=== PATIENT | male | born 1965 | race Hispanic/Latino ===

== ENCOUNTER 2016-12-20 09:53 | Inpatient (IN) | payer OTHER ==
[2016-12-20 09:53] VITALS: PULSE 130
--- NOTE | 2016-12-20 10:13 | ED PDOC ---
Arrival/HPI - General Chief Complaint: Palpitations Time Seen by Provider: 12/20/16 10:03 Historian: Patient - Critical Care Critical Care Minutes: 30 minutes - History of Present Illness Narrative History of Present Illness (Text): 12/20/16 09:57 A 51 year old male, whose past medical history includes hypertension, hyperlipidemia, and diabetes, presents to the emergency department sent by his Orthophotography Technician Dr. Chaudhry for rapid atrial fibrillation. Patient states he was diagnosed with Atrial Fibrillation 5 days ago by PMD but today he was told his HR is fast. Patient was given a dose of digoxin by hair mixer with no improvement. Patient denies of any shortness of breath, palpitations, chest pain , dizziness, or any other complaints. PMD: Dr. Quiroz Orthophotography Technician: Dr. Chaudhry Time/Duration: < week (5 days) Symptom Onset: Sudden Symptom Course: Unchanged Past Medical History - Provider Review Nursing Documentation Reviewed: Yes - Psychiatric Hx Substance Use: No Family/Social History - Physician Review Nursing Documentation Reviewed: Yes Family/Social History: No Known Family HX Smoking Status: Never Smoked Hx Alcohol Use: Yes Frequency of alcohol use: Socially Hx Substance Use: No Allergies/Home Meds Allergies/Adverse Reactions: Allergies No Known Allergies Allergy (Verified 12/20/16 10:12) Home Medications: Home Meds Medication Instructions Recorded Confirmed Atorvastatin [Lipitor] 10 mg PO DAILY 07/13/14 12/20/16 Levothyroxine Sodium 50 mcg PO DAILY 07/13/14 12/20/16 [Levothyroxine] Pantoprazole Sodium [Protonix] 40 mg PO DAILY 07/13/14 12/20/16 Fenofibrate Nanocrystallized 200 mg PO DAILY 12/20/16 12/20/16 [Fenofibrate] Icosapent Ethyl [Vascepa] 2 gm PO BID 12/20/16 12/20/16 Losartan [Cozaar] 100 mg PO DAILY 12/20/16 12/20/16 Metoprolol Succinate [Toprol XL] 100 mg PO BID 12/20/16 12/20/16 Review of Systems - Physician Review All systems were reviewed & negative as marked: Yes - Review of Systems Respiratory: absent: SOB Cardiovascular: Other (atrial fibrillation). absent: Chest Pain, Palpitations Neurological: absent: Dizziness Physical Exam Vital Signs Reviewed: Yes Vital Signs Temp Pulse Resp BP Pulse Ox 12/20/16 12:38 98.6 F 93 H 17 132/91 H 96 12/20/16 10:36 90 144/83 12/20/16 10:17 145 H 159/119 H 12/20/16 10:06 98.3 F 145 H 20 159/119 H 99 12/20/16 10:02 98.3 F 145 H 20 159/119 H 99 Temperature: Afebrile Blood Pressure: Hypertensive Pulse: Irregular Respiratory Rate: Normal Appearance: Positive for: Well-Appearing Pain Distress: None Mental Status: Positive for: Alert and Oriented X 3 - Systems Exam Head: Present: Atraumatic, Normocephalic Pupils: Present: PERRL Extroacular Muscles: Present: EOMI Conjunctiva: Present: Normal Mouth: Present: Moist Mucous Membranes Neck: Present: Normal Range of Motion Respiratory/Chest: Present: Clear to Auscultation, Good Air Exchange. No: Respiratory Distress, Accessory Muscle Use Cardiovascular: Present: Irregular Rhythm Abdomen: Present: Normal Bowel Sounds. No: Tenderness, Distention, Peritoneal Signs Back: Present: Normal Inspection Upper Extremity: Present: Normal Inspection. No: Cyanosis, Edema Lower Extremity: Present: Normal Inspection. No: Edema Neurological: Present: GCS=15, CN II-XII Intact, Speech Normal Skin: Present: Warm, Dry, Normal Color. No: Rashes Psychiatric: Present: Alert, Oriented x 3, Normal Insight, Normal Concentration Medical Decision Making ED Course and Treatment: 12/20/16 10:02 Impression: 51 year old male with atrial fibrillation. Differential Diagnosis included but are not limited to: Atrial Fibrillation Plan: -- EKG -- Chest X-ray -- Labs -- Cardizem -- Reassess and disposition Progress Notes: EKG: Ordered, reviewed, and independently interpreted the EKG. Rate : 134 BPM Rhythm : Atrial Fibrillation Interpretation : No ST-segment elevations or depressions, no T-wave inversions, normal intervals. Comparison : No previous EKG for comparison. 12/20/16 10:15 Patient was administered Cardizem 15 mg and heart rate changed to A-Fib at 80- 90 BPM. Ordered Cardizem PO. Patient continues to be asymptomatic. 12/20/2016 10:26 EKG: Ordered, reviewed, and independently interpreted the EKG. Rate : 86 BPM Rhythm : Atrial Fibrillation Interpretation : No ST-segment elevations or depressions, no T-wave inversions, normal intervals. Comparison : No previous EKG for comparison. 12/20/2016 10:40 Chest X-ray IMPRESSION: Mild cardiomegaly. Pulmonary venous appearance probably top-normal. Mammillated/asymmetrically elevated right hemidiaphragm. Dictator: Perla Jones MD Actual weight obtained and patient treated with lovenox. Case was discussed with Dr. Raza who is covering for Dr. Quiroz. He will place on his service. Consult placed for Dr. Chaudhry. - Critical Care Critical Care Minutes: 30 minutes - Lab Interpretations Lab Results: 12/20/16 10:30 12/20/16 10:30 Lab Results 12/20/16 10:30: PT 11.7, INR 1.08, APTT 26.9 12/20/16 10:30: Sodium 145, Potassium 4.7, Chloride 107, Carbon Dioxide 24, Anion Gap 19, BUN 23 H, Creatinine 1.0, Est GFR ( Amer) > 60, Est GFR ( Non-Af Amer) > 60, Random Glucose 107, Calcium 10.0, Magnesium 1.1 L, Total Bilirubin 0.7, AST 31, ALT 37, Alkaline Phosphatase 50, Lactate Dehydrogenase 401, Total Creatine Kinase 124, Troponin I < 0.01, Total Protein 7.6, Albumin 4.5, Globulin 3.1, Albumin/Globulin Ratio 1.5 12/20/16 10:30: WBC 7.6, RBC 4.33, Hgb 13.8 L, Hct 40.1 L, MCV 92.6, MCH 31.9, MCHC 34.4, RDW 13.0, Plt Count 236, MPV 11.0, Gran % 71.9 H, Lymph % (Auto) 18.8 L, [place] % (Auto) 7.0 H, Eos % (Auto) 1.8, Baso % (Auto) 0.5, Gran # 5.45, Lymph # 1.4, [place] # 0.5, Eos # 0.1, Baso # 0.04 12/20/16 09:40: TSH 3rd Generation 2.40 I have reviewed the lab results: Yes Interpretation: All labs normal - RAD Interpretation Radiology Orders: 12/20/16 10:05 CHEST PORTABLE [RAD] Stat Filling Operator: Radiologist - Medication Orders Current Medication Orders: Alprazolam (Xanax) 0.25 mg PO Q8 PRN; Protocol PRN Reason: Anxiety Stop: 12/27/16 14:01 Atorvastatin Calcium (Lipitor) 10 mg PO DAILY [facility] Last Admin: 12/20/16 11:31 Dose: Enoxaparin Sodium (Lovenox) 110 mg SC Q12H [facility] PRN Reason: Protocol Last Admin: 12/20/16 11:30 Dose: Fenofibrate (Tricor) 145 mg PO DAILY [facility] Levothyroxine Sodium (Synthroid) 50 mcg PO DAILY [facility] Losartan Potassium (Cozaar) 100 mg PO DAILY [facility] Last Admin: 12/20/16 11:31 Dose: Metoprolol Succinate (Toprol Xl) 100 mg PO BID [facility] Last Admin: 12/20/16 17:44 Dose: 100 mg MAR Pulse and Blood Pressure Document 12/20/16 17:44 JANINE (Rec: 12/20/16 17:45 JANINE [id number]) Pulse Pulse Rate (60-90) 97 Blood Pressure Blood Pressure (100/60-150/90) 128/86 Pantoprazole Sodium (Protonix Ec Tab) 40 mg PO DAILY [facility] Last Admin: 12/20/16 11:35 Dose: 40 mg Discontinued Medications Diltiazem HCl (Cardizem) 20 mg IVP STAT STA Stop: 12/20/16 10:08 Last Admin: 12/20/16 10:17 Dose: 15 mg IVP Administration Document 12/20/16 10:17 IT (Rec: 12/20/16 10:17 IT [id number]) Charges for Administration # of IVP Administrations 1 MAR Pulse and Blood Pressure Document 12/20/16 10:17 IT (Rec: 12/20/16 10:17 IT [id number]) Pulse Pulse Rate (60-90) 145 Blood Pressure Blood Pressure (100/60-150/90) 159/119 Diltiazem HCl (Cardizem) 60 mg PO STAT STA Stop: 12/20/16 10:15 Last Admin: 12/20/16 10:36 Dose: 60 mg MAR Pulse and Blood Pressure Document 12/20/16 10:36 IT (Rec: 12/20/16 10:36 IT [id number]) Pulse Pulse Rate (60-90) 90 Blood Pressure Blood Pressure (100/60-150/90) 144/83 Enoxaparin Sodium (Lovenox) 100 mg SC STAT STA PRN Reason: Protocol Stop: 12/20/16 10:42 Last Admin: 12/20/16 10:49 Dose: 100 mg Subcutaneous Administrations Document 12/20/16 10:49 IT (Rec: 12/20/16 10:52 IT [id number]) Injection Site MAR Injection Site Left Abdomen Charges for Administration # of Subcutaneous Administrations 1 Magnesium Oxide (Mag-Ox) 400 mg PO STAT STA Stop: 12/20/16 11:10 Last Admin: 12/20/16 11:35 Dose: 400 mg - Scribe Statement The provider has reviewed the documentation as recorded by the Britany Nettles Provider Scribe Attestation: All medical record entries made by the Britany were at my direction and personally dictated by me. I have reviewed the chart and agree that the record accurately reflects my personal performance of the history, physical exam, medical decision making, and the department course for this patient. I have also personally directed, reviewed, and agree with the discharge instructions and disposition. Disposition/Present on Arrival - Present on Arrival Any Indicators Present on Arrival: No History of DVT/PE: No History of Uncontrolled Diabetes: No Urinary Catheter: No History of Decub. Ulcer: No History Surgical Site Infection Following: None - Disposition Have Diagnosis and Disposition been Completed?: Yes Diagnosis: Rapid atrial fibrillation Disposition: HOSPITALIZED Disposition Time: 11:09 Patient Plan: Admission Condition: CRITICAL
[2016-12-20 10:39] LABS: BASO # 0.04 K/mm3 (0.0-2.0); BASO % 0.5 % (0.0-3.0); EOS # 0.1 (0.0-0.7); EOS % 1.8 % (1.5-5.0); GRAN # 5.45 (1.4-6.5); GRAN % 71.9 % (50.0-68.0); HEMATOCRIT 40.1 % (42.0-52.0); LYMPH # 1.4 (1.2-3.4); LYMPH % 18.8 % (22.0-35.0); MEAN CELL VOLUME 92.6 fl (80.0-105.0); MEAN CORPUSCULAR HEMOGLOBIN 31.9 pg (25.0-35.0); MEAN CORPUSCULAR HGB CONC 34.4 g/dl (31.0-37.0); MONO # 0.5 (0.1-0.6); WHITE BLOOD COUNT 7.6 10^3/ul (4.5-11.0)
[2016-12-20] MEDS ORDERED: Enoxaparin 100 mg Syringe SC STA (10:41)
--- NOTE | 2016-12-20 10:41 | RAD ---
HISTORY: rapid afib COMPARISON: No prior. FINDINGS: LUNGS: No consolidation. PLEURA: No significant pleural effusion identified, no pneumothorax apparent. CARDIOVASCULAR: Mild cardiomegaly. Pulmonary venous appearance -probably top normal OSSEOUS STRUCTURES: Thoracic spondylosis VISUALIZED UPPER ABDOMEN: Normal. OTHER FINDINGS: Mammillated, elevated right hemidiaphragm IMPRESSION: Mild cardiomegaly. Pulmonary venous appearance probably top-normal Mammillated/asymmetrically elevated right hemidiaphragm
[2016-12-20 10:49] LABS: ALB/GLOB RATIO 1.5 (1.1-1.8); ALKALINE PHOSPHATASE 50 U/L (38-126); ALT/SGPT 37 U/L (7-56); AST/SGOT 31 U/L (17-59); BILIRUBIN,TOTAL 0.7 mg/dL (0.2-1.3); BLOOD UREA NITROGEN 23 mg/dL (7-21); CARBON DIOXIDE 24 mmol/L (21-33); CHLORIDE 107 mmol/L (98-107); GFR AFRICAN-AMERICAN > 60; GLUCOSE,RANDOM 107 mg/dL (70-110); POTASSIUM 4.7 mmol/L (3.6-5.0); SODIUM 145 mmol/L (132-148); TOTAL PROTEIN 7.6 g/dL (5.8-8.3)
[2016-12-20 10:55] LABS: INR 1.08 (0.93-1.08); MAGNESIUM 1.1 mg/dL (1.7-2.2); PARTIAL THROMBOPLASTIN TIME 26.9 Seconds (23.7-30.8)
[2016-12-20 11:07] LABS: TROPONIN I < 0.01 ng/mL
[2016-12-20] MEDS ORDERED: Magnesium Oxide 400 mg Tab UD PO STA (11:09)
[2016-12-20] MEDS: Enoxaparin 120 mg Syringe SC SCH ×2 (11:30→22:40)
[2016-12-20] MEDS: Pantoprazole 40 mg EC Tab PO SCH (11:35)
--- NOTE | 2016-12-20 11:37 | CP.PCM.HP ---
History of Present Illness - History of Present Illness History of Present Illness: 51 year old male PMH of HTN, hyperlipidemia, hypothyroidism, obesity, GERD, sciatica presents to the ED due rapid heart rate during stress test. Patient was seen by primary physician in office last week and found to have an abnormal EKG with possible Afib. Patient was seen today 12/20/2016 by his 3rd pressman, Dr. Chaudhry for a stress test, and HR became elevated and was instructed to go to the ED. He states he experienced some diaphoreses during the test. He denies any CP, palpitations, SOB, dizziness, N/V, headaches, blurry vision, fever/ chills, abdominal pain, diarrhea/constipation, numbness/tingling. He denies any pain or any radiation or any other complaint. PMHx: HTN, hyperlipidemia, hypothyroidism, obesity, GERD, sciatica. FamHx: Paternal cardiac hx -> Father CT at 39, Brother CT, and paternal Uncle CT at young ages Meds: Pantoprozole 40mg PO daily, Levothyroxine 50 mcg PO daily, atorvastatin 10 mg PO daily, Icosapent (Vascepa) 2 gm PO BID, Fenofibrate 200mg daily PO, metoprolol succinate 100 mg PO BID Allergies: NKDA SurgHx: hernia repair at age 3. Social: Works in [employer]. Denies tobacco and drug uses. Admits to social alcohol consumption about 2x a week. Present on Admission - Present on Admission Any Indicators Present on Admission: No Review of Systems - Constitutional Constitutional: Excessive Sweating. absent: Anorexia, Chills, Fever, Lethargy, Malaise, Weakness - EENT Eyes: absent: Blurred Vision, Change in Vision, Pain Ears: absent: Ear Pain Nose/Mouth/Throat: absent: Nasal Congestion, Sinus Pain, Sinus Pressure, Sore Throat - Cardiovascular Cardiovascular: Diaphoresis, Rapid Heart Rate. absent: Chest Pain, Chest Pain at Rest, Chest Pain with Activity, Dyspnea, Dyspnea on Exertion, Edema, Irregular Heart Rhythm, Palpitations, Radiating Pain, Slow Heart Rate - Respiratory Respiratory: absent: Cough, Dyspnea, Hemoptysis, Dyspnea on Exertion, Wheezing, Chest Congestion - Gastrointestinal Gastrointestinal: absent: Abdominal Pain, Bloating, Constipation, Diarrhea, Heartburn, Loose Stools, Nausea, Vomiting - Genitourinary Genitourinary: absent: Change in Urinary Stream, Difficulty Urinating - Musculoskeletal Musculoskeletal: absent: Arthralgias, Numbness, Tingling - Integumentary Integumentary: absent: Rash, Sores, Wounds - Neurological Neurological: absent: Disequilibrium, Dizziness, Headaches, Loss of Vision, Paresthesias, Tingling - Psychiatric Psychiatric: Anxiety - Endocrine Endocrine: Excessive Sweating. absent: Fatigue, Palpitations Past Patient History - Past Social History Smoking Status: Never Smoked - CARDIAC Hx Hypertension: Yes - PULMONARY Hx Respiratory Disorders: No - NEUROLOGICAL Hx Neurological Disorder: No - HEENT Hx HEENT Problems: No - RENAL Hx Chronic Kidney Disease: No - ENDOCRINE/METABOLIC Hx Endocrine Disorders: No - HEMATOLOGICAL/ONCOLOGICAL Hx Blood Disorders: No - INTEGUMENTARY Hx Dermatological Problems: No - MUSCULOSKELETAL/RHEUMATOLOGICAL Hx Musculoskeletal Disorders: No - GASTROINTESTINAL Hx Gastrointestinal Disorders: No - GENITOURINARY/GYNECOLOGICAL Hx Genitourinary Disorders: No - PSYCHIATRIC Hx Substance Use: No - SURGICAL HISTORY Hx Surgeries: No - ANESTHESIA Hx Anesthesia: No Meds Allergies/Adverse Reactions: Allergies Allergy/AdvReac Type Severity Reaction Status Date / Time No Known Allergies Allergy Verified 12/20/16 10:12 Physical Exam - Constitutional Appears: Non-toxic, No Acute Distress - Head Exam Head Exam: NORMAL INSPECTION, NORMOCEPHALIC - Eye Exam Eye Exam: EOMI, Normal appearance, PERRL - ENT Exam ENT Exam: Mucous Membranes Moist, Normal Exam - Neck Exam Neck exam: Positive for: Normal Inspection - Respiratory Exam Respiratory Exam: Clear to Auscultation Bilateral, NORMAL BREATHING PATTERN - Cardiovascular Exam Cardiovascular Exam: Irregular Rhythm, +S1, +S2 - GI/Abdominal Exam GI & Abdominal Exam: Normal Bowel Sounds. absent: Guarding, Tenderness - Extremities Exam Extremities exam: Positive for: normal inspection, pedal pulses present. Negative for: pedal edema - Neurological Exam Neurological exam: Alert, CN II-XII Intact, Oriented x3 - Psychiatric Exam Psychiatric exam: Anxious, Normal Affect - Skin Skin Exam: Normal Color Results - Vital Signs Recent Vital Signs: Last Vital Signs Temp 98.3 F 12/20/16 10:06 Pulse 90 12/20/16 10:36 Resp 20 12/20/16 10:06 BP 144/83 12/20/16 10:36 Pulse Ox 99 12/20/16 10:06 - Labs Result Diagrams: 12/20/16 10:30 12/20/16 10:30 Assessment & Plan - Assessment and Plan (Free Text) Assessment: 51 year old male PMH of HTN, hyperlipidemia, hypothyroidism, obesity, GERD, sciatica and newly developed Afib presents to the ED due rapid heart rate during stress test. Patient was seen by primary physician in office last week and found to have an abnormal EKG with possible Afib. Patient was seen today by his 3rd pressman, Dr. Chaudhry for a stress test, and HR became elevated. Patient is being worked up for Afib and rulling out ACS. Plan: 1. Newly Diagnosed Afib with RVR -EKG: Atrial Fibrillation, pending official read -Chest Xray: Mild cardiomegaly. Pulmonary venous appearance probably top-normal. Mammillated/asymmetrically elevated right hemidiaphragm. -Initial Troponins: negative, follow serial: - Echo ordered - cardizem given in ED - Patient started on theraputic lovenox 110mg Q12H - BP: 132/91 HR: 93 - continue to monitor vitals - Cardiology Dr. Chaudhry consulted 2. HLD-chronic - continue home med Lipitor 10mg 3. HTN-chronic - continue home meds Metoprolol 100, and cozaar 100 4. Hypothyroidism - continue home synthroid 50mcg -TSH level ordered 5. GERD- chronic -continue home pantoprazole 40 6. GI/DVT prophylaxis -Protonix -lovenox therapeutic
[2016-12-20 14:02] LABS: CHOLESTEROL 193 mg/dL (130-200)
[2016-12-20 14:17] LABS: TROPONIN I < 0.01 ng/mL
[2016-12-20 16:49] VITALS: BMI 36.0
[2016-12-20] MEDS: Metoprolol Succinate 100 mg XL Tab PO SCH (17:44)
[2016-12-20 19:22] LABS: TROPONIN I < 0.01 ng/mL
--- NOTE | 2016-12-20 21:01 | CARD ---
APPROVED REPORT EKG Measurement Heart [id number] <Conclusion> Atrial fibrillation Abnormal ECG
--- NOTE | 2016-12-20 21:26 | CARD ---
APPROVED REPORT EKG Measurement Heart [id number] <Conclusion> Atrial fibrillation with rapid ventricular response Abnormal ECG
--- NOTE | 2016-12-20 21:26 | CARD ---
APPROVED REPORT EKG Measurement Heart [id number] <Conclusion> Atrial fibrillation Abnormal ECG
[2016-12-21 09:00] LABS: INR 1.19 (0.93-1.08)
[2016-12-21 09:24] LABS: BASO # 0.03 K/mm3 (0.0-2.0); BASO % 0.5 % (0.0-3.0); EOS # 0.2 (0.0-0.7); EOS % 2.9 % (1.5-5.0); GRAN # 3.81 (1.4-6.5); HEMATOCRIT 38.5 % (42.0-52.0); LYMPH # 1.2 (1.2-3.4); LYMPH % 21.1 % (22.0-35.0); MEAN CELL VOLUME 92.1 fl (80.0-105.0); MEAN CORPUSCULAR HEMOGLOBIN 32.1 pg (25.0-35.0); MEAN CORPUSCULAR HGB CONC 34.8 g/dl (31.0-37.0); MEAN PLATELET VOLUME 10.9 fl (7.0-11.0); MONO # 0.4 (0.1-0.6); MONO % 7.5 % (1.0-6.0); RED CELL DISTRIBUTION WIDTH 12.5 % (11.5-14.5); WHITE BLOOD COUNT 5.6 10^3/ul (4.5-11.0)
[2016-12-21 09:30] LABS: ALB/GLOB RATIO 1.6 (1.1-1.8); ALKALINE PHOSPHATASE 51 U/L (38-126); ALT/SGPT 51 U/L (7-56); AST/SGOT 67 U/L (17-59); BILIRUBIN,TOTAL 0.9 mg/dL (0.2-1.3); BLOOD UREA NITROGEN 24 mg/dL (7-21); CALCIUM 9.5 mg/dL (8.4-10.5); CARBON DIOXIDE 25 mmol/L (21-33); CHLORIDE 104 mmol/L (98-107); GFR AFRICAN-AMERICAN > 60; GLUCOSE,RANDOM 105 mg/dL (70-110); POTASSIUM 4.3 mmol/L (3.6-5.0); SODIUM 144 mmol/L (132-148); TOTAL PROTEIN 7.4 g/dL (5.8-8.3)
[2016-12-21] MEDS: Levothyroxine 50 MCG TAB PO SCH (09:58)
[2016-12-21] MEDS: Pantoprazole 40 mg EC Tab PO SCH (09:59)
[2016-12-21] MEDS: Metoprolol Succinate 100 mg XL Tab PO SCH ×2 (09:59→17:40)
--- NOTE | 2016-12-21 10:47 | PN ---
DATE: 12/21/2016 SUBJECTIVE: The patient is a 51-year-old male whose atrial fibrillation is finally well controlled. He is currently asymptomatic. OBJECTIVE: VITAL SIGNS: Blood pressure is 131/96, heart rate is in 88. NECK: Negative JVD. LUNGS: Without rales. HEART: With S1, S2. EXTREMITIES: Without edema. LABORATORY DATA: Hemoglobin is 13.8. Troponins are negative. Triglyceride is 491. The stress test revealed an ejection fraction of 29% with multiple defects. Echocardiogram reveals an ejection fraction of approximately 35% with dilated left atrium. IMPRESSION: 1. Cardiomyopathy. 2. Atrial fibrillation. 3. Hypertension. 4. Hyperlipidemia. PLAN: Given these findings, the patient is being treated appropriately with beta blockers, ARBs, as well as anticoagulation. We will load the patient with aspirin and Plavix today. We will need to definitively rule out coronary disease and proceed with a cardiac catheterization in the morning. I have discussed this with the patient including risks, benefits of the catheterization in detail. We will schedule for the morning. Brodie Chaudhry MD
[2016-12-21] MEDS: Enoxaparin 120 mg Syringe SC SCH (12:37)
--- NOTE | 2016-12-21 14:46 | CP.PCM.PN ---
<Reg Mckinnon - Last Filed: 12/21/16 14:38> Subjective - Date & Time of Evaluation Date of Evaluation: 12/21/16 Time of Evaluation: 06:00 - Subjective Subjective: Patient was seen and evaluated bedside. He stated he was feeling fine and wants to go home to day if possible. Patient denied any CP, SOB, palpitations, fever, chills, sore throat, nausea, vomiting or any other complaints. Objective - Vital Signs/Intake and Output Vital Signs (last 24 hours): Temp Pulse Resp BP Pulse Ox 98.7 F 92 H 18 155/102 H 94 L 12/21/16 12:00 12/21/16 12:00 12/21/16 12:00 12/21/16 12:00 12/21/16 06:00 Intake and Output: 12/21/16 12/21/16 06:59 18:59 Intake Total 480 360 Output Total 600 Balance 480 -240 - Medications Medications: Current Medications Alprazolam (Xanax) 0.25 mg PO Q8 PRN; Protocol PRN Reason: Anxiety Stop: 12/27/16 14:01 Aspirin (Aspirin Chewable) 81 mg PO DAILY [facility] Last Admin: 12/21/16 09:59 Dose: 81 mg Atorvastatin Calcium (Lipitor) 10 mg PO DAILY [facility] Last Admin: 12/21/16 09:59 Dose: 10 mg Clopidogrel Bisulfate (Plavix) 75 mg PO ONCE ONE Stop: 12/22/16 08:01 Fenofibrate (Tricor) 145 mg PO DAILY [facility] Last Admin: 12/21/16 09:59 Dose: 145 mg Levothyroxine Sodium (Synthroid) 50 mcg PO DAILY [facility] Last Admin: 12/21/16 09:58 Dose: 50 mcg Losartan Potassium (Cozaar) 100 mg PO DAILY [facility] Last Admin: 12/21/16 10:00 Dose: 100 mg Metoprolol Succinate (Toprol Xl) 100 mg PO BID [facility] Last Admin: 12/21/16 09:59 Dose: 100 mg Pantoprazole Sodium (Protonix Ec Tab) 40 mg PO DAILY [facility] Last Admin: 12/21/16 09:59 Dose: 40 mg - Labs Labs: 12/21/16 08:40 12/21/16 08:40 PT 13.1 SECONDS (9.4-12.5) H 12/21/16 08:30 INR 1.19 (0.93-1.08) H 12/21/16 08:30 APTT 49.0 Seconds (25.1-36.5) H 12/21/16 08:30 - Constitutional Appears: Non-toxic, No Acute Distress - Head Exam Head Exam: ATRAUMATIC, NORMAL INSPECTION, NORMOCEPHALIC - Eye Exam Eye Exam: EOMI, Normal appearance Pupil Exam: NORMAL ACCOMODATION, PERRL - ENT Exam ENT Exam: Mucous Membranes Moist - Neck Exam Neck Exam: Normal Inspection - Respiratory Exam Respiratory Exam: Clear to Ausculation Bilateral, NORMAL BREATHING PATTERN - Cardiovascular Exam Cardiovascular Exam: REGULAR RHYTHM - GI/Abdominal Exam GI & Abdominal Exam: Normal Bowel Sounds - Extremities Exam Extremities Exam: Full ROM, Normal Capillary Refill - Neurological Exam Neurological Exam: Alert, Awake, Oriented x3 - Psychiatric Exam Psychiatric exam: Normal Affect - Skin Skin Exam: Normal Color Assessment and Plan - Assessment and Plan (Free Text) Assessment: 51 year old male PMH of HTN, hyperlipidemia, hypothyroidism, obesity, GERD, sciatica and newly developed Afib presents to the ED due rapid heart rate during stress test. Patient was seen by primary physician in office last week and found to have an abnormal EKG with possible Afib. Patient was seen today by his relay engineer, Dr. Chaudhry for a stress test, and HR became elevated. Patient is being worked up for Afib and rulling out ACS. Plan: 1. Newly Diagnosed Afib with RVR -EKG: Atrial Fibrillation, pending official read -Chest Xray: Mild cardiomegaly. Pulmonary venous appearance probably top-normal. Mammillated/asymmetrically elevated right hemidiaphragm. -Troponins negative x3 - Echo ordered - cardizem given in ED - Patient started on theraputic lovenox 110mg Q12H - BP: 141/103 HR: 87 - continue to monitor vitals - Cardiology Dr. Chaudhry consulted: EF: 35% dilated left atrium, cardiac cath in the AM to rule out coronary disease, CARDIOMYOPATHY, PATIENT loaded with Aspirin and Plavix 2. HLD-chronic - continue home med Lipitor 10mg -Lipid Panel: triglycerides 491, Cholesterol total: 193 3. HTN-chronic - continue home meds Metoprolol 100, and cozaar 100 4. Hypothyroidism - continue home synthroid 50mcg -TSH level ordered 5. GERD- chronic -continue home pantoprazole 40 6. GI/DVT prophylaxis -Protonix -lovenox therapeutic <Anthony Rowley - Last Filed: 12/21/16 23:31> Objective - Vital Signs/Intake and Output Vital Signs (last 24 hours): Temp Pulse Resp BP Pulse Ox 98.1 F 81 18 155/113 H 94 L 12/21/16 17:55 12/21/16 22:00 12/21/16 17:55 12/21/16 17:55 12/21/16 06:00 Intake and Output: 12/21/16 12/22/16 18:59 06:59 Intake Total 360 Output Total 600 Balance -240 - Medications Medications: Current Medications Alprazolam (Xanax) 0.25 mg PO Q8 PRN; Protocol PRN Reason: Anxiety Stop: 12/27/16 14:01 Aspirin (Aspirin Chewable) 81 mg PO DAILY [facility] Last Admin: 12/21/16 09:59 Dose: 81 mg Atorvastatin Calcium (Lipitor) 10 mg PO DAILY [facility] Last Admin: 12/21/16 09:59 Dose: 10 mg Clopidogrel Bisulfate (Plavix) 75 mg PO ONCE ONE Stop: 12/22/16 08:01 Fenofibrate (Tricor) 145 mg PO DAILY [facility] Last Admin: 12/21/16 09:59 Dose: 145 mg Hydralazine HCl (Apresoline) 10 mg IVP Q6 PRN PRN Reason: Systolic Blood Pressure Levothyroxine Sodium (Synthroid) 50 mcg PO DAILY [facility] Last Admin: 12/21/16 09:58 Dose: 50 mcg Losartan Potassium (Cozaar) 100 mg PO DAILY [facility] Last Admin: 12/21/16 10:00 Dose: 100 mg Metoprolol Succinate (Toprol Xl) 100 mg PO BID [facility] Last Admin: 12/21/16 17:40 Dose: 100 mg Pantoprazole Sodium (Protonix Ec Tab) 40 mg PO DAILY [facility] Last Admin: 12/21/16 09:59 Dose: 40 mg - Labs Labs: 12/21/16 08:40 12/21/16 08:40 PT 13.1 SECONDS (9.4-12.5) H 12/21/16 08:30 INR 1.19 (0.93-1.08) H 12/21/16 08:30 APTT 49.0 Seconds (25.1-36.5) H 12/21/16 08:30 Assessment and Plan - Assessment and Plan (Free Text) Plan: Patient is seen and examined at the bed side. Also Discussed with the resident in detail and agree with the above assessment and Plan.
[2016-12-21 18:06] LABS: PHOSPHOROUS 4.2 mg/dL (2.5-4.5)
[2016-12-21 18:24] LABS: MAGNESIUM 1.1 mg/dL (1.7-2.2)
[2016-12-21] MEDS ORDERED: Magnesium Sulfate 2 GM in Sodium Chloride 0.9% 100 ML IVPB ONE (18:28)
--- NOTE | 2016-12-21 20:45 | CARD ---
APPROVED REPORT EKG Measurement Heart [id number] <Conclusion> Normal sinus rhythm Normal ECG
[2016-12-22 06:06] VITALS: O2SAT 96
[2016-12-22 06:15] LABS: MAGNESIUM 1.5 mg/dL (1.7-2.2); PHOSPHOROUS 3.7 mg/dL (2.5-4.5)
[2016-12-22] MEDS: Metoprolol Succinate 100 mg XL Tab PO SCH (06:27)
[2016-12-22] MEDS ORDERED: Iodixanol 320 MG/ML 100 ML BOTTLE IV ONE (06:44)
[2016-12-22 07:38] LABS: BASO # 0.01 K/mm3 (0.0-2.0); BASO % 0.2 % (0.0-3.0); EOS # 0.1 (0.0-0.7); EOS % 1.6 % (1.5-5.0); GRAN # 4.12 (1.4-6.5); GRAN % 72.7 % (50.0-68.0); HEMATOCRIT 35.2 % (42.0-52.0); LYMPH % 17.5 % (22.0-35.0); MEAN CORPUSCULAR HGB CONC 35.2 g/dl (31.0-37.0); MONO # 0.5 (0.1-0.6); RED CELL DISTRIBUTION WIDTH 12.4 % (11.5-14.5); WHITE BLOOD COUNT 5.7 10^3/ul (4.5-11.0)
[2016-12-22 07:46] LABS: ALB/GLOB RATIO 1.5 (1.1-1.8); ALKALINE PHOSPHATASE 44 U/L (38-126); ALT/SGPT 46 U/L (7-56); AST/SGOT 79 U/L (17-59); BILIRUBIN,TOTAL 0.7 mg/dL (0.2-1.3); BLOOD UREA NITROGEN 17 mg/dL (7-21); CALCIUM 8.9 mg/dL (8.4-10.5); CARBON DIOXIDE 25 mmol/L (21-33); CHLORIDE 105 mmol/L (98-107); GFR AFRICAN-AMERICAN > 60; GLUCOSE,RANDOM 109 mg/dL (70-110); POTASSIUM 3.6 mmol/L (3.6-5.0); SODIUM 142 mmol/L (132-148)
[2016-12-22] MEDS: Midazolam 2 MG/2 ML VIAL ONE ×4 (08:05→14:23)
[2016-12-22] MEDS ORDERED: Sodium Chloride 0.9% 1,000 ML IV SCH (09:00)
[2016-12-22] MEDS: Levothyroxine 50 MCG TAB PO SCH (09:29)
[2016-12-22] MEDS ORDERED: Sodium Chloride 0.45% 1,000 ML IV SCH (10:15)
--- NOTE | 2016-12-22 11:35 | CP.PCM.DIS ---
Provider - Provider Date of Admission: 12/20/16 11:19 Attending physician: Josesito Quiroz MD Primary care physician: NO PRIMARY CARE PROVIDER Time Spent in preparation of Discharge (in minutes): 70 Hospital Course - Lab Results Lab Results: Most Recent Lab Values WBC 5.7 10^3/ul (4.5-11.0) 12/22/16 07:30 RBC 3.87 10^6/uL (3.5-6.1) 12/22/16 07:30 Hgb 12.4 g/dL (14.0-18.0) L 12/22/16 07:30 Hct 35.2 % (42.0-52.0) L 12/22/16 07:30 MCV 91.0 fl (80.0-105.0) 12/22/16 07:30 MCH 32.0 pg (25.0-35.0) 12/22/16 07:30 MCHC 35.2 g/dl (31.0-37.0) 12/22/16 07:30 RDW 12.4 % (11.5-14.5) 12/22/16 07:30 Plt Count 198 10^3/uL (120.0-450.0) 12/22/16 07:30 MPV 11.0 fl (7.0-11.0) 12/22/16 07:30 Gran % 72.7 % (50.0-68.0) H 12/22/16 07:30 Lymph % (Auto) 17.5 % (22.0-35.0) L 12/22/16 07:30 Frontier % (Auto) 8.0 % (1.0-6.0) H 12/22/16 07:30 Eos % (Auto) 1.6 % (1.5-5.0) 12/22/16 07:30 Baso % (Auto) 0.2 % (0.0-3.0) 12/22/16 07:30 Gran # 4.12 (1.4-6.5) 12/22/16 07:30 Lymph # 1.0 (1.2-3.4) L 12/22/16 07:30 Frontier # 0.5 (0.1-0.6) 12/22/16 07:30 Eos # 0.1 (0.0-0.7) 12/22/16 07:30 Baso # 0.01 K/mm3 (0.0-2.0) 12/22/16 07:30 PT 13.1 SECONDS (9.4-12.5) H 12/21/16 08:30 INR 1.19 (0.93-1.08) H 12/21/16 08:30 APTT 49.0 Seconds (25.1-36.5) H 12/21/16 08:30 Sodium 142 mmol/L (132-148) 12/22/16 07:04 Potassium 3.6 mmol/L (3.6-5.0) 12/22/16 07:04 Chloride 105 mmol/L (98-107) 12/22/16 07:04 Carbon Dioxide 25 mmol/L (21-33) 12/22/16 07:04 Anion Gap 16 (10-20) 12/22/16 07:04 BUN 17 mg/dL (7-21) 12/22/16 07:04 Creatinine 1.0 mg/dL (0.8-1.5) 12/22/16 07:04 Est GFR ( Amer) > 60 12/22/16 07:04 Est GFR (Non-Af Amer) > 60 12/22/16 07:04 Random Glucose 109 mg/dL (70-110) 12/22/16 07:04 Hemoglobin A1c 5.8 % (4.2-6.5) 12/20/16 13:45 Calcium 8.9 mg/dL (8.4-10.5) 12/22/16 07:04 Phosphorus 3.7 mg/dL (2.5-4.5) 12/22/16 05:30 Magnesium 1.5 mg/dL (1.7-2.2) L 12/22/16 05:30 Total Bilirubin 0.7 mg/dL (0.2-1.3) 12/22/16 07:04 AST 79 U/L (17-59) H 12/22/16 07:04 ALT 46 U/L (7-56) 12/22/16 07:04 Alkaline Phosphatase 44 U/L (38-126) 12/22/16 07:04 Lactate Dehydrogenase 344 U/L (333-699) 12/20/16 18:56 Total Creatine Kinase 100 U/L (35-230) 12/20/16 18:56 Troponin I < 0.01 ng/mL 12/20/16 18:56 Total Protein 7.0 g/dL (5.8-8.3) 12/22/16 07:04 Albumin 4.2 g/dL (3.0-4.8) 12/22/16 07:04 Globulin 2.8 gm/dL 12/22/16 07:04 Albumin/Globulin Ratio 1.5 (1.1-1.8) 12/22/16 07:04 Triglycerides 491 mg/dL (35-160) H 12/20/16 13:45 Cholesterol 193 mg/dL (130-200) 12/20/16 13:45 LDL Cholesterol Direct 95 mg/dL (0-129) 12/20/16 13:45 HDL Cholesterol 52 mg/dL (29-60) 12/20/16 13:45 TSH 3rd Generation 2.40 mIU/mL (0.46-4.68) 12/20/16 09:40 - Hospital Course Hospital Course: 51 year old male with a past medical history of hypertension, hyperlipidemia, hypothyroidism, obesity, gastric esophageal reflux disease, and sciatica presented to the ED on 12/20/2016 for new onset atrial fibrillation detected by his paint prep technician, Dr. Chaudhry, during the patients stress test early that day. In the ED, the patient complained of diaphoresis but denied any chest pain, palpitations, shortness of breath, dizziness, nausea /vomiting, headaches, blurry vision, fever/chills, abdominal pain, diarrhea/constipation, or numbness /tingling. Chest x-ray showed mild cardiomegaly, initial troponins were negative , and EKG showed atrial fibrillation with rapid ventricular response. The patient was started on therapeutic lovanox and diltiazem. He was admitted to telemetry for workup and monitoring of the new onset atrial fibrillation with rapid ventricular response. Cardiology was consulted. Labs showed negative troponins x3, elevated triglycerides, and elevated cholesterol. Echocardiogram showed EF 35%. Patient converted back to normal sinus rhythm spontaneously. Patient was taken to the [facility] and found to have no coronary blockages. Cardiology recommends lifestyle modifications along with the following medications: sotalol, lostartan, atorvastatin, apixaban, fenofibrate nanocrystallized, icosapent ethyl, and levothyroxine. Patient was discharged with instructions for outpatient follow up with PCP in 1 week. Discharge Exam - Head Exam Head Exam: ATRAUMATIC, NORMAL INSPECTION, NORMOCEPHALIC - Eye Exam Eye Exam: EOMI, Normal appearance, PERRL Pupil Exam: NORMAL ACCOMODATION, PERRL - ENT Exam ENT Exam: Mucous Membranes Moist, Normal Exam - Respiratory Exam Respiratory Exam: Clear to PA & Lateral, NORMAL BREATHING PATTERN - Cardiovascular Exam Cardiovascular Exam: REGULAR RHYTHM, +S1, +S2 - GI/Abdominal Exam GI & Abdominal Exam: Normal Bowel Sounds, Unremarkable - Extremities Exam Extremities exam: pedal pulses present - Neurological Exam Neurological exam: Alert, Oriented x3 - Psychiatric Exam Psychiatric exam: Normal Affect, Normal Mood - Skin Skin Exam: Normal Color Discharge Plan - Discharge Medications Prescriptions: Apixaban [Eliquis] 5 mg PO BID #60 tab Sotalol [Betapace] 80 mg PO BID #60 tab - Follow Up Plan Condition: CRITICAL Disposition: HOME/ ROUTINE Instructions: Atrial Fibrillation (GEN), Left Heart Catheterization (DC), Heart Healthy Diet (GEN), Cholesterol and Your Health (GEN) Additional Instructions: Follow up with Dr. Raza Sunday Follow up with Dr. Chaudhry in 2 weeks Discharge instructions: please follow the attached handout with regards to the post cardiac catherization and interventional procedure discharge instructions. If bleeding occurs at right groin; apply pressure and proceed to the nearest emergency room. If condition occurs again, go to the nearest emergency room. Please start new medication tonight; and continue home medications as ordered on discharge instructions. diet: Heart Healthy, low cholesterol Patient states he refuses the flu and the pneumococcal vaccines, as of this writing. Referrals: Kb Raza MD [Staff Provider] - PCP,NO [Primary Care Provider] -
[2016-12-22 13:39] VITALS: RESP 18; TEMP 98.5
[2016-12-22 15:37] VITALS: BP 144/1; PULSE 87
--- NOTE | 2016-12-22 17:18 | CARDCATH ---
CARDIAC CATHETERIZATION DATE OF PROCEDURE: 12/22/2016 HISTORY: The patient is a 51-year-old male with multiple cardiac risk factors who presents with new-onset atrial fibrillation. Noninvasive workup revealed an abnormal stress test as well as a cardiomyopathy. Because of this, cardiac catheterization was recommended. PROCEDURES: Left heart catheterization with coronary arteriography, left ventriculogram, supra-aortic valvular injection. The right femoral artery was cannulated with a 6-Cymraes sheath. There were no complications. The findings on catheterization revealed a left ventricle that was diffusely hypokinetic with an estimated ejection fraction of 40%-45%. There was no mitral regurgitation. Supra-aortic valvular injection revealed no aortic insufficiency. His coronary anatomy revealed a right dominant circulation. The RCA revealed intimal irregularities without significant stenosis. The left main artery was unremarkable. The LAD and diagonal vessels revealed intimal irregularities without significant stenosis. The circumflex artery and obtuse marginal branches were free of significant disease. The patient tolerated the procedure well. Angio-Seal was used to close the femoral artery site. In summary, the procedure revealed a dilated cardiomyopathy with an EF of 40%-45%. Non-obstructive CAD was noted. No aortic insufficiency. Paroxysmal atrial fibrillation. Given these findings, the patient is now converted back to normal sinus rhythm. His medications should include Eliquis, baby aspirin, sotalol 80 b.i.d. as well as an arb for better blood pressure control. I have discussed with the patient about the need for cardiac risk reduction program. Followup and instructions have been given to the patient. Brodie Chaudhry MD
--- NOTE | 2016-12-22 22:46 | CARD ---
APPROVED REPORT EKG Measurement Heart [id number] <Conclusion> Normal sinus rhythm Prolonged QT Abnormal ECG
== END 2016-12-22 16:31 | disposition home or self-care (01) | DRG 287 ==
LOC: ED 09:53 → ERH 11:19 → 2RNO 12:33 → 2RSO 12-22 09:08
PROVIDERS: ADMIT Internal Medicine; ATTEND Internal Medicine
PROC: 4A023N7 Measurement of Cardiac Sampling and Pressure, Left Heart, Percutaneous Approach (ICD-10-PCS; principal; 2016-12-22)
PROC: B2151ZZ Fluoroscopy of Left Heart using Low Osmolar Contrast (ICD-10-PCS; 2016-12-22)
PROC: B2111ZZ Fluoroscopy of Multiple Coronary Arteries using Low Osmolar Contrast (ICD-10-PCS; 2016-12-22)
PROC: 3E073KZ Introduction of Other Diagnostic Substance into Coronary Artery, Percutaneous Approach (ICD-10-PCS; 2016-12-22)
DX: I48.0 Paroxysmal atrial fibrillation (principal); I25.10 Atherosclerotic heart disease of native coronary artery without angina pectoris; I42.0 Dilated cardiomyopathy; K21.9 Gastro-esophageal reflux disease without esophagitis; I10 Essential (primary) hypertension; E78.5 Hyperlipidemia, unspecified; E03.9 Hypothyroidism, unspecified; M54.30 Sciatica, unspecified side; E66.9 Obesity, unspecified; Z68.36 Body mass index [BMI] 36.0-36.9, adult